=== PATIENT | male | born 1950 | race Caucasian/White ===

== ENCOUNTER 2025-01-21 11:38 | Outpatient (CLI) | payer MEDICARE, SELFPAY ==
--- NOTE | 2025-01-21 12:47 | P.ANES_ITS ---
Anesthesia Charges Start Date/Time Anesthesia Start Date: 01/21/25 Anesthesia Start Time: 12:42 Stop Date/Time Anesthesia Stop Date: 01/21/25 Anesthesia Stop Time: 13:07 Summary Extremes of Age - Over 70 or under 1: MDA Coding CPT Codes CPT Codes: ANES UPR GI NDSC PX NOS - 08592 ([id number]) P3 - PATIENT W/SEVERE SYS DISEASE, QK - TRACK LAYER HEAD 2-4 CNCRNT ANES PROC, QX - CHIEF WELLNESS OFFICER SVC W/ MD MED DIRECTION Additional Codes: Summary - Extremes of Age - Over 70 or under 1: MDA ([id number])
--- NOTE | 2025-01-21 12:47 | W.ANESCHARGE ---
Anesthesia Charges Start Date/Time Anesthesia Start Date: 01/21/25 Anesthesia Start Time: 12:42 Stop Date/Time Anesthesia Stop Date: 01/21/25 Anesthesia Stop Time: 13:07 Summary Extremes of Age - Over 70 or under 1: MDA Coding CPT Codes CPT Codes: ANES UPR GI NDSC PX NOS - 36485 ([id number]) P3 - PATIENT W/SEVERE SYS DISEASE, QK - VARNISHING UNIT TOOL SETTER 2-4 CNCRNT ANES PROC, QX - MANAGER BUSINESS DEVELOPMENT H[facility]ICE SVC W/ MD MED DIRECTION Additional Codes: Summary - Extremes of Age - Over 70 or under 1: MDA ([id number])
--- NOTE | 2025-01-21 13:07 | P.ANES_ITS ---
Anesthesia Charges Start Date/Time Anesthesia Start Date: 01/21/25 Anesthesia Start Time: 12:42 Stop Date/Time Anesthesia Stop Date: 01/21/25 Anesthesia Stop Time: 13:07 Coding CPT Codes CPT Codes: ANES UPR GI NDSC PX NOS - 00286 ([id number]) P3 - PATIENT W/SEVERE SYS DISEASE, QK - MOBILE EQUIPMENT SERVICER 2-4 CNCRNT ANES PROC, QX - APPRENTICE FUNERAL DIRECTOR SVC W/ MD MED DIRECTION
--- NOTE | 2025-01-21 13:07 | W.ANESCHARGE ---
Anesthesia Charges Start Date/Time Anesthesia Start Date: 01/21/25 Anesthesia Start Time: 12:42 Stop Date/Time Anesthesia Stop Date: 01/21/25 Anesthesia Stop Time: 13:07 Coding CPT Codes CPT Codes: ANES UPR GI NDSC PX NOS - 10933 ([id number]) P3 - PATIENT W/SEVERE SYS DISEASE, QK - SUPPLIER QUALITY SPECIALIST 2-4 CNCRNT ANES PROC, QX - PROJECT SCHEDULER SVC W/ MD MED DIRECTION
== END 2025-01-21 11:39 | disposition home or self-care (01) ==
LOC: OP CLINIC 11:45
PROVIDERS: PCP Family Medicine; Visit Provider Internal Medicine Gastroenterology
DX: R13.10 Dysphagia, unspecified (principal); K22.89 Other specified disease of esophagus
CPT/HCPCS: 00731; 43239; 88305; 99100; J2704; J3490